=== PATIENT | female | born 1985 | race Caucasian/White ===

== ENCOUNTER 2017-07-29 18:21 | Emergency (ER) | payer OTHER ==
[~2017-07-29] VITALS: Ht 170.2 cm; Wt 68.0 kg
[~2017-07-29 18:21] MED LIST: PRENATAL PO
[2017-07-29] MEDS ORDERED: MULTI VITAMIN1 EACH PO (18:40)
[2017-07-29 20:25] VITALS: BP 139/92
== END 2017-07-29 20:26 | disposition left against medical advice (07) ==
LOC: M.ERS 18:21
DX: Z53.21 Procedure and treatment not carried out due to patient leaving prior to being seen by health care provider (principal)